=== PATIENT | male | born 1965 | race Caucasian/White ===

== ENCOUNTER 2017-08-19 12:54 | Inpatient (IN) | payer BC ==
[2017-08-19] MEDS: Dextrose 5%-Lactated Ringers 1,000 ML IV SCH ×2 (13:20→21:41)
[2017-08-19] MEDS ORDERED: MVI, Adult with Vitamin K 10 ML, Thiamine 200 MG, Chromium/Copper/Mang/Selen/Zn 1 ML in... IV ONE ×4 (13:24)
[2017-08-19] MEDS ORDERED: Ondansetron 4 MG/2 ML SDV IVPUSH PRN (13:24)
[2017-08-19] MEDS ORDERED: Acetaminophen/HYDROcodone 108-2.5 MG/5 ML Soln 15 ML UD Cup PO PRN (13:45)
--- NOTE | 2017-08-19 13:53 | PCM.HP ---
H&P History of Present Illness - General Date of Service: 08/19/17 Admit Problem/Dx: Admission Diagnosis/Problem Admission Diagnosis/Problem Partial small bowel obstruction Source of Information: Patient History Limitations: Reports: No Limitations - History of Present Illness Initial Comments - Free Text/Narative: [facility] because of a partial small bowel obstruction at the . He states he is feeling pretty good right now. Pain is a 1 - 2 /10 on a pain scale. Symptom Onset Date: 08/18/17 Symptom Onset Time: 15:00 (Approximate) Duration of Symptoms: Reports: Colic, Getting Worse, Waxing/Waning Location: Reports: Abdomen (left upper quadrant ) Quality: Reports: Pressure, Stabbing, Throbbing, Other (twisting ) Severity: Mild Improves with: Reports: None Worsens with: Reports: Eating, Movement Associated Symptoms: Reports: Loss of Appetite, Nausea/Vomiting - Related Data Allergies/Adverse Reactions: Allergies Allergy/AdvReac Type Severity Reaction Status Date / Time insulin lispro [From Humalog] Allergy Cannot Verified 03/09/14 06:18 Remember Penicillins Allergy Swelling Verified 03/09/14 06:18 varenicline tartrate Allergy Cannot Verified 03/09/14 06:18 [From Chantix] Remember Home Medications: Home Meds Carvedilol 25 mg PO BID 03/06/14 [History] Finasteride [Proscar] 5 mg PO DAILY 03/06/14 [History] Melatonin/Pyridoxine HCl (B6) [Melatonin 3 mg Tablet] 12 mg PO BEDTIME 03/06/14 [History] atorvaSTATin [Lipitor] 40 mg PO BEDTIME 03/06/14 [History] buPROPion HCl [Bupropion HCl Sr] 150 mg PO BID 03/06/14 [History] hydrOXYzine HCl [hydrOXYzine] 25 mg PO BID 03/06/14 [History] Lisinopril 20 mg PO DAILY 03/09/14 [History] Zolpidem Tartrate [Ambien] 10 mg PO BEDTIME 03/09/14 [History] Acetaminophen/HYDROcodone [Acetaminophen/HYDROcodone 108-2.5 MG/5 ML] 15 ml PO Q4H PRN #473 solution 03/12/14 [Rx] Hydrocortisone [Hydrocortisone 1% Crm] 28.4 gm TOP ASDIRECTED PRN #45 crm [Rx] Social & Family History - Tobacco Use Smoking Status *Q: Current Every Day Smoker Years of Tobacco use: 40 Packs/Tins Daily: 0.5 Second Hand Smoke Exposure: No - Caffeine Use Caffeine Use: Reports: Coffee - Recreational Drug Use Recreational Drug Use: No H&P Review of Systems - Review of Systems: Review Of Systems: See Below General: Reports: Fatigue, Decreased Appetite HEENT: Reports: No Symptoms Pulmonary: Reports: No Symptoms Cardiovascular: Reports: No Symptoms Gastrointestinal: Reports: Abdominal Pain, Decreased Appetite, Nausea Genitourinary: Reports: No Symptoms Musculoskeletal: Reports: No Symptoms Skin: Reports: No Symptoms Psychiatric: Reports: No Symptoms Neurological: Reports: No Symptoms Hematologic/Lymphatic: Reports: No Symptoms Immunologic: Reports: No Symptoms Exam - Exam Exam: See Below - Vital Signs Vital Signs: Last Vital Signs Temp 95.4 F 08/19/17 13:12 Pulse 60 08/19/17 13:12 Resp 16 08/19/17 13:12 BP 128/85 08/19/17 13:12 Pulse Ox 98 08/19/17 13:12 Weight: 409 lb 13.429 oz - Exam Quality Assessment: DVT Prophylaxis General: Alert, Oriented, Mild Distress HEENT: PERRLA Neck: Supple, Trachea Midline Lungs: Clear to Auscultation, Normal Respiratory Effort Cardiovascular: Regular Rate, Regular Rhythm, Systolic Murmur GI/Abdominal Exam: Soft, No Distention, Tender (minimal tenderness in the left upper quadrant. ), Hernia (umbilical ) (Male) Exam: Deferred Rectal (Males) Exam: Deferred Back Exam: Normal Inspection, Full Range of Motion Extremities: Normal Inspection, Normal Range of Motion, No Pedal Edema Skin: Warm, Dry, Intact Neurological: Cranial Nerves Intact, Reflexes Equal Bilateral Neuro Extensive - Mental Status: Alert, Oriented x3, Normal Mood/Affect, Memory Intact Neuro Extensive - Motor, Sensory, Reflexes: CN II-XII Intact Psychiatric: Alert, Normal Affect, Normal Mood Problem List Initiated/Reviewed/Updated: Yes Orders Last 24hrs: Active Orders 24 hr Category Date Time Status Patient Status [ADT] Routine ADT 08/19/17 13:25 Ordered Activity as Tolerated [RC] .Routine Care 08/19/17 13:24 Ordered Ambulate [RC] QID Care 08/19/17 13:24 Ordered Height and Weight [RC] UPON Care 08/19/17 13:24 Ordered Intake and Output [RC] QSHIFT Care 08/19/17 13:25 Ordered May Shower [RC] ASDIRECTED Care 08/19/17 13:24 Ordered Notify Provider Vital Signs [RC] ASDIRECTED Care 08/19/17 13:24 Ordered Peripheral IV Care [RC] . DIRECTED Care 08/19/17 13:24 Ordered Pulse Oximetry [RC] CONTINUOUS Care 08/19/17 13:25 Ordered Up to Chair [RC] QID Care 08/19/17 13:24 Ordered Vital Signs [RC] Q4H Care 08/19/17 13:24 Ordered Clear Liquid Diet [DIET] Diet 08/19/17 Dinner Ordered FERRITIN [CHEM] Routine Lab 08/19/17 13:24 Ordered FOLIC ACID [CHEM] Routine Lab 08/19/17 13:24 Ordered MAGNESIUM [CHEM] Routine Lab 08/19/17 13:24 Ordered PHOSPHORUS [CHEM] Routine Lab 08/19/17 13:24 Ordered VITAMIN B12 [CHEM] Routine Lab 08/19/17 13:24 Ordered VITAMIN D,25-HYDROXY [CHEM] Routine Lab 08/19/17 13:24 Ordered Acetaminophen/HYDROcodone [Acetaminophen/HYDROcodone Med 08/19/17 13:45 Ordered 108-2.5 MG/5 ML] 15 ml PO Q4H PRN Carvedilol [Coreg] Med 08/19/17 21:00 Ordered 25 mg PO BID Dextrose 5%-Lactated Ringers 1,000 ml Med 08/19/17 13:30 Active IV ASDIRECTED Finasteride [Proscar] Med 08/20/17 09:00 Ordered 5 mg PO DAILY Lactated Ringers w/MVI,Thiamine & Trace Minerals (1, Med 08/19/17 13:35 Ordered 000ml) MVI, Adult with Vitamin K [Infuvite Adult] 10 ml Thiamine [Vitamin B-1] 200 mg Chromium/Copper/Vivek/Selen/Zn [Multitrace-5 Concentrate ] 1 ml Lactated Ringers [Ringers, Lactated] 1,000 ml IV ONETIME Lisinopril [Prinivil] Med 08/20/17 09:00 Ordered 20 mg PO DAILY Melatonin/Pyridoxine HCl (B6) [Melatonin 3 mg Tablet] Med 08/19/17 21:00 Ordered 12 mg PO BEDTIME Ondansetron [Zofran] Med 08/19/17 13:24 Ordered 4 mg IVPUSH Q6H PRN Pantoprazole [ProTONIX IV] Med 08/19/17 21:00 Ordered 40 mg IVPUSH DAILY Zolpidem [Ambien] Med 08/19/17 21:00 Ordered 10 mg PO BEDTIME buPROPion [Wellbutrin SR] Med 08/19/17 21:00 Ordered 150 mg PO BID hydrOXYzine HCl [Atarax] Med 08/19/17 21:00 Ordered 25 mg PO BID Peripheral IV Insertion Adult [OM.PC] Routine Oth 08/19/17 13:24 Ordered Sequential Compression Device [OM.PC] Routine Oth 08/19/17 13:24 Ordered Medication Orders Dextrose/Lactated Ringer's (Dextrose 5%-Lactated Ringers) 1,000 mls @ 125 mls/ hr IV ASDIRECTED FLAQUITA Multivitamins/Minerals 10 ml/Thiamine HCl 200 mg/ Chromium/Copper/Manganese/ Seleni/Zn 1 ml/ Lactated Ringer's 1,013 mls @ 500 mls/hr IV ONETIME ONE Stop: 08/19/17 15:36 Ondansetron HCl (Zofran) 4 mg IVPUSH Q6H PRN PRN Reason: Nausea/Vomiting Pantoprazole Sodium (Protonix Iv) 40 mg IVPUSH BEDTIME [facility] Assessment/Plan Comment:: Assessment: Partial Small Bowel Obstruction Plan: Admit to Inpatient Estimated Length of stay 3 nights and 4 days Schedule and have Consent signed for Exploratory Laparoscopic possible Open release of partial small bowel obstruction and possible bowel resection and lysis of adhesions - General Anesthesia - 08/20/17. NPO after MN SCDs Incentive inspirometer 10 times every hour while awake. Roxana Villalobos 08/19/17
[2017-08-19] MEDS ORDERED: MVI, Adult with Vitamin K 10 ML, Thiamine 100 MG, Chromium/Copper/Mang/Selen/Zn 1 ML in... IV ONE ×4 (14:30)
[2017-08-19] MEDS: Magnesium Sulfate/Water 2 GM in Premix Bag 1 BAG IV SCH ×2 (17:03→21:23)
[2017-08-19] MEDS: Loratadine 10 MG Tab PO SCH (17:59)
[2017-08-19] MEDS: Tamsulosin 0.4 MG Cap.ER PO SCH (17:59)
[2017-08-19] MEDS: Fluticasone Propionate Nasal Spray 16 GM Bottle NASBOTH SCH (17:59)
[2017-08-19] MEDS ORDERED: Zolpidem 5 MG Tab PO SCH (21:00)
[2017-08-19] MEDS ORDERED: Carvedilol 25 MG Tab PO SCH (21:00)
[2017-08-19] MEDS ORDERED: buPROPion 150 MG Tab.SR PO SCH (21:00)
[2017-08-19] MEDS ORDERED: hydrOXYzine HCl 25 MG Tab PO SCH (21:00)
[2017-08-19] MEDS ORDERED: Melatonin 3 MG Tab PO SCH (21:00)
[2017-08-19] MEDS: Mirtazapine 15 MG Tab PO SCH (21:12)
[2017-08-19] MEDS: Pantoprazole 40 MG Vial IVPUSH SCH (21:12)
[2017-08-19] MEDS: Zolpidem 5 MG Tab PO SCH (21:18)
[2017-08-20] MEDS: Magnesium Sulfate/Water 2 GM in Premix Bag 1 BAG IV SCH ×4 (03:40→21:55)
[2017-08-20] MEDS: Dextrose 5%-Lactated Ringers 1,000 ML IV SCH (05:06)
[2017-08-20] MEDS ORDERED: Lisinopril 20 MG Tab PO SCH (09:00)
[2017-08-20] MEDS ORDERED: Finasteride 5 MG Tab PO SCH (09:00)
--- NOTE | 2017-08-20 09:54 | PN ---
DATE OF SERVICE: 08/20/2017 SUBJECTIVE: Cristofer is n.p.o. for an open procedure for partial small bowel obstruction. Vital signs have been stable. Pain was managed. He has been up ambulating. REVIEW OF SYSTEMS: Remainder of review of systems negative for any pertinent positives and negatives. OBJECTIVE: GENERAL: Cristofer [place] is a 52-year-old male. VITAL SIGNS: TPR is 96.3, 63, 16, and blood pressure is 130/84. HEENT: Negative. NECK: Supple. HEART: Regular rate and rhythm. LUNGS: Clear. ABDOMEN: Very minimal tenderness in the left abdominal quadrant. EXTREMITIES: Without peripheral edema. ASSESSMENT: High-grade partial small bowel obstruction. PLAN: 1. Remain n.p.o. for surgery. 2. Rx cefoxitin 2 grams IV on-call to OR. Roxana Mcnally PA-C /[id number]
[2017-08-20] MEDS ORDERED: Ondansetron 4 MG/2 ML SDV ONE (10:41)
[2017-08-20] MEDS ORDERED: Dexamethasone 4 MG/ML SDV ONE (10:41)
[2017-08-20] MEDS ORDERED: Neostigmine Methylsulfate 1 MG/ML 5 ML Syringe ONE (10:41)
[2017-08-20] MEDS ORDERED: Propofol 200 MG/20 ML SDV ONE (10:41)
[2017-08-20] MEDS ORDERED: Rocuronium 50 MG/5 ML Vial ONE (10:41)
[2017-08-20] MEDS ORDERED: fentaNYL 250 MCG/5 ML SDV ONE (10:41)
[2017-08-20] MEDS ORDERED: Succinylcholine 200 MG/10 ML MDV ONE (10:41)
[2017-08-20] MEDS ORDERED: Glycopyrrolate 0.2 MG/ML 5 ML MDV ONE (10:41)
[2017-08-20] MEDS ORDERED: cefOXitin 2 GM Vial ONE (10:51)
[2017-08-20] MEDS ORDERED: Bupivacaine 0.5%/EPINEPHrine 1:200,000 50 ML MDV ONE (10:51)
[2017-08-20] MEDS ORDERED: Ketamine 500 MG/5 ML MDV IV SCH ×3 (12:00)
[2017-08-20] MEDS ORDERED: cefOXitin 2 GM in Sodium Chloride 0.9% 50 ML IV ONE (12:00)
[2017-08-20] MEDS ORDERED: Lidocaine 2% 100 MG/5 ML Syringe IVPUSH ONE (12:00)
[2017-08-20] MEDS ORDERED: Lidocaine 2% 100 MG/5 ML Syringe IVPUSH SCH (12:00)
[2017-08-20] MEDS ORDERED: Lidocaine 0.4%/D5W 2 GM/500 ML BAG IV SCH ×2 (12:00)
[2017-08-20] MEDS ORDERED: Ropivacaine 42 ML, Dexamethasone 8 MG, EPINEPHrine 0.4 MG, Sodium Chloride 0.9% 35.6 ML NERVRT SCH ×4 (12:00)
[2017-08-20] MEDS ORDERED: Non-Formulary Medication 1 Each SCH (12:00)
[2017-08-20] MEDS ORDERED: Lactated Ringers 1,000 ML ONE (12:11)
[2017-08-20] MEDS ORDERED: Meropenem 500 MG SDV ONE (12:45)
[2017-08-20] MEDS ORDERED: fentaNYL 100 MCG/2 ML SDV ONE (13:18)
[2017-08-20] MEDS ORDERED: Scopolamine 1.5 MG Transdermal Patch TOP ONE (13:46)
[2017-08-20] MEDS ORDERED: hydrOXYzine HCl 100 MG/2 ML SDV IM ONE (13:47)
[2017-08-20] MEDS ORDERED: fentaNYL 100 MCG/2 ML SDV IVPUSH ONE (13:59)
[2017-08-20] MEDS ORDERED: hydrOXYzine HCl 100 MG/2 ML SDV IM PRN (16:00)
[2017-08-20] MEDS ORDERED: diphenhydrAMINE 50 MG/ML SDV IVPUSH PRN (16:00)
[2017-08-20] MEDS ORDERED: Ondansetron 4 MG/2 ML SDV IVPUSH PRN (16:00)
[2017-08-20] MEDS ORDERED: Dextrose 5%-Lactated Ringers 1,000 ML IV SCH (16:00)
[2017-08-20] MEDS ORDERED: Labetalol 20 MG/4 ML Syringe IVPUSH PRN (16:00)
[2017-08-20] MEDS ORDERED: MVI, Adult with Vitamin K 10 ML, Thiamine 200 MG, Chromium/Copper/Mang/Selen/Zn 1 ML in... IV SCH ×4 (16:00)
[2017-08-20] MEDS ORDERED: SCOPOLAMINE PATCH CHECK TOP SCH (16:00)
[2017-08-20] MEDS ORDERED: Naloxone 0.4 MG/ML SDV IV PRN (16:00)
[2017-08-20] MEDS ORDERED: Metoclopramide 10 MG/2 ML SDV IVPUSH PRN (16:00)
[2017-08-20] MEDS ORDERED: HYDROmorphone/Normal Saline 15 MG/30 ML PCA IV PRN (16:00)
[2017-08-20] MEDS: Tamsulosin 0.4 MG Cap.ER PO SCH (16:10)
[2017-08-20] MEDS: Acetaminophen Soln 650 MG/20.3 ML UD Cup PO SCH ×2 (16:10→21:04)
[2017-08-20] MEDS: Loratadine 10 MG Tab PO SCH (16:11)
[2017-08-20] MEDS: Gabapentin 250 MG/5 ML Solution ML 470 ML Bottle PO SCH ×2 (16:11→20:42)
[2017-08-20] MEDS: Fluticasone Propionate Nasal Spray 16 GM Bottle NASBOTH SCH (16:11)
[2017-08-20] MEDS: Heparin Sodium 5,000 Units/ML Vial SUBCUT SCH (18:41)
[2017-08-20] MEDS: cefOXitin 2 GM in Sodium Chloride 0.9% 50 ML IV SCH (20:43)
[2017-08-20] MEDS: Pantoprazole 40 MG Vial IVPUSH SCH (20:47)
[2017-08-20] MEDS: Mirtazapine 15 MG Tab PO SCH (21:04)
[2017-08-20] MEDS: Zolpidem 5 MG Tab PO SCH (21:04)
[2017-08-21] MEDS: cefOXitin 2 GM in Sodium Chloride 0.9% 50 ML IV SCH ×2 (03:44→08:22)
[2017-08-21] MEDS: Acetaminophen Soln 650 MG/20.3 ML UD Cup PO SCH ×3 (03:45→15:52)
[2017-08-21] MEDS ORDERED: Iohexol 647 MG/ML 50 ML SDV PO STA (03:49)
[2017-08-21] MEDS: Magnesium Sulfate/Water 2 GM in Premix Bag 1 BAG IV SCH ×2 (04:44→09:51)
[2017-08-21] MEDS ORDERED: Celecoxib 200 MG Cap PO SCH (08:00)
[2017-08-21] MEDS: Heparin Sodium 5,000 Units/ML Vial SUBCUT SCH (08:12)
[2017-08-21] MEDS: Gabapentin 250 MG/5 ML Solution ML 470 ML Bottle PO SCH ×2 (08:12→13:46)
[2017-08-21] MEDS ORDERED: buPROPion 150 MG Tab.SR PO ONE (08:23)
[2017-08-21] MEDS: Carvedilol 6.25 MG Tab PO SCH ×2 (09:51→16:02)
[2017-08-21] MEDS ORDERED: Magnesium Hydroxide 400 MG/5 ML Susp 30 ML Cup PO ONE ×2 (10:00→15:41)
[2017-08-21] MEDS ORDERED: Lisinopril 20 MG Tab PO SCH (10:00)
[2017-08-21 15:04] VITALS: BP 162/89
[2017-08-21] MEDS: Tamsulosin 0.4 MG Cap.ER PO SCH (16:02)
[2017-08-21] MEDS: Fluticasone Propionate Nasal Spray 16 GM Bottle NASBOTH SCH (16:02)
[2017-08-21] MEDS: Loratadine 10 MG Tab PO SCH (16:02)
[2017-08-22] MEDS ORDERED: Cyanocobalamin (Vitamin B12) 1,000 MCG/ML SDV IM ONE (09:00)
--- NOTE | 2017-08-23 08:47 | CR ---
UGI wo KUB HISTORY: eval R -Y GBP FINDINGS: After administration of oral contrast, upright views were obtained. Post operative changes gastric bypass. Surgical drains in place. No evidence for leak. Contrast passes freely into proximal small bowel loops. There is contrast in the colon from prior CT abdomen. There is some persistent sma ll bowel distention from ileus IMPRESSION: Status post Sharla-en-Y gastric bypass revision No evidence for leak or obstruction.
--- NOTE | 2017-08-23 09:15 | DISCH ---
FINAL DIAGNOSES: Partial small bowel obstruction associated with: 1. Stricture at the point of the Sharla limb entering jejunojejunostomy. 2. 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 3. Peritoneal implant over mid small bowel. 4. Recurrent incarcerated umbilical hernia. SECONDARY DIAGNOSES: 1. Bariatric surgery status. 2. History of coronary artery disease. 3. History of depression. 4. Type 2 diabetes mellitus, in remission. 5. Hyperlipidemia, in remission. 6. Hypertension. 7. History of methamphetamine use, in remission. 8. History of obstructive sleep apnea. OPERATIVE PROCEDURE: This was done on 08/20/2017. Exploratory laparotomy with lysis of adhesions and: 1. Small bowel resection. 2. Separate small bowel strictureplasty. 3. Excision of peritoneal nodule, mid small bowel. 4. Repair of recurrent incarcerated umbilical hernia. HOSPITAL COURSE: This 52-year-old, who has done well status post Sharla-en-Y gastric bypass, was presenting with a picture of small-bowel obstruction. He was initially seen in [facility] in [place] and was transferred here then on 08/19/2017 and underwent the above operative procedure on 08/20/2017. Postoperatively, he has done well. He has been receiving Tylenol, Celebrex, and gabapentin for pain, which is controlling that satisfactorily. He will be discharged home with those medications with two weeks of gabapentin and Celebrex to be written, and he will be discharged home on a step 3 diet for 1 week and then follow up with Roxana Mcnally will be on 08/27/2017 at 10:30 a.m. He will otherwise continue his present home medications.
--- NOTE | 2017-08-24 11:47 | OR ---
DATE OF PROCEDURE: 08/20/2017 PREOPERATIVE DIAGNOSIS: Partial small bowel obstruction. POSTOPERATIVE DIAGNOSES: 1. Partial small bowel obstruction at jejunojejunostomy. 2. Separate small bowel stricture in the mid common limb. 3. Peritoneal implants over mid small bowel. 4. Recurrent incarcerated umbilical hernia. OPERATIVE PROCEDURES: Exploratory laparotomy with lysis of adhesions. 1. Small bowel resection (68759). 2. Separate small bowel stricturoplasty (49369). 3. Excision of peritoneal nodule overlying the mid small bowel (16067). 4. Repair of recurrent incarcerated umbilical hernia (85975). ANESTHESIA: General. BOOK SHELVER: Roxana Mcnally PA-C INDICATIONS FOR PROCEDURE: This is a 52-year-old male admitted in the [facility] early yesterday morning and then was transferred yesterday during the daytime. He has a picture of partial small bowel obstruction. Overnight, he has felt fairly good and without having any significant oral intake, and the plan is to proceed with open laparotomy and release of any adhesions with small bowel resection if necessary. Potential risks of procedure including bleeding, infection, leaks from various GI tract closures, and possible recurrence of the problem over time as well as possibility of cardiopulmonary, septic, or hemorrhagic complications leading to were discussed, and the patient wishes to proceed. An open approach will be used due to the degree of small bowel distention seen on CT scan which would make entrance into the abdomen with a laparoscopic approach would put the patient at high risk for bowel injury and significant spill of GI contents. DETAILS OF PROCEDURE: The patient was taken to the operating room. After general endotracheal anesthesia was induced, a Bro catheter was inserted, and the abdomen prepped and draped. A midline incision from the umbilicus upwards, roughly a handsbreadth in length towards the xiphoid was made and carried down through the full-thickness of abdominal wall. Upon entering the peritoneal cavity, the patient was noted to have a fairly distended Sharla limb. This had decompressed somewhat compared to what was seen on CT scan with the condition of the patient having been more or less n.p.o. The patient appeared to have some stricturing at the jejunojejunostomy and that appeared to be related to the angulation of the Sharla limb as it entered the jejunojejunostomy. After lysis of adhesions, the patient was noted to have an additional layer of stricturing somewhat proximal to the original jejunojejunostomy. It was likely contributing to the patient's symptoms as well. It was noted that the biliopancreatic limb above that was also somewhat distended and thick walled. Further examination showed a small peritoneal nodule over the mid portion of the small bowel high over the common limb. This was excised and sent as a separate specimen. It appeared to most likely be some benign entity, although pathologic confirmation would appear to be necessary. The patient also had an area of incarcerated umbilical hernia sac containing small amount of omentum and preperitoneal fat as this had previously been repaired. At this point, the small bowel was detached at the point where the Sharla limb entered the jejunojejunostomy with the BILL stapler. Just proximal to that, the bowel was once again divided to provide the end of that Sharla limb with an area for anastomosis with adequate blood supply. That small bowel specimen was sent separately. The stricture in the area where the biliopancreatic limb came up to the jejunojejunostomy was then also addressed. At this point, an opening was made in the antimesenteric border. Two internal firings of the BILL adams loads were placed at the end of that bowel which extended into the jejunojejunostomy was then divided, closing off the open end of the site of the stricturoplasty. GI tract continuity was finalized with an anastomosis between the end of the Sharla limb, which at this point was noted to be 110 cm to the small bowel, roughly 20 cm distal to the edge of the jejunojejunostomy. We did not change the limb length significantly in this case as the patient's weight loss and comorbidity reduction has been very satisfactory. This anastomosis accomplished with internal firing of the Endo-BILL 60 mm stapler. The common limb was closed transversely using the same stapler. Angles were anastomosed and were reinforced with some 3-0 Vicryl stitch, and the mesentery closed with a 2-0 silk stitch of nonabsorbable stitch being used so as to make this more of a permanent closure. At this point, the umbilical hernia was addressed. Incision extended downward such that we entered the sac of the hernia from its superior aspect. This allowed dissection of the contents away from the hernia. The hernia was then closed with a [id number] stitch of #2 Vicryl stitching that was from within. This did result in a little bit of bunching of the tissue which might make it seem as though there was persistent hernia, but it certainly was not at this point. The stitch was then continued to close the midline fascia superior to that, and the subcutaneous tissue was then approximated with layers of 3-0 Vicryl stitch and the skin with arabella. Dressing was applied. The patient was taken to the recovery room in satisfactory condition. Of note, the patient had a transversus abdominis plane block focused in the subcostal area done by open approach but precluded visualization of needle in correct of location and standard injection of solution on each site. Physician appeals assistant, Roxana Mcnally PA-C, played an essential role in assisting in this case, helping to position the patient, retract structures as needed, as well as suturing and cutting sutures when indicated. Her presence improved patient safety and decreased the operative time. Tao Rehman MD /[id number]
== END 2017-08-21 19:25 | disposition home or self-care (01) | DRG 221 ==
LOC: JP.2SS 12:54
PROVIDERS: ADMIT Surgery; ATTEND Surgery
PROC: 0DBA0ZX Excision of Jejunum, Open Approach, Diagnostic (ICD-10-PCS; 2017-08-19)
PROC: 3E0T3BZ Introduction of Anesthetic Agent into Peripheral Nerves and Plexi, Percutaneous Approach (ICD-10-PCS; 2017-08-19)
PROC: 0DB80ZZ Excision of Small Intestine, Open Approach (ICD-10-PCS; principal; 2017-08-20)
PROC: 0WQF0ZZ Repair Abdominal Wall, Open Approach (ICD-10-PCS; 2017-08-20)
PROC: 0DQ80ZZ Repair Small Intestine, Open Approach (ICD-10-PCS; 2017-08-20)
PROC: 0DBW0ZZ Excision of Peritoneum, Open Approach (ICD-10-PCS; 2017-08-20)
DX: K56.690 Other partial intestinal obstruction (principal); K42.0 Umbilical hernia with obstruction, without gangrene; I25.10 Atherosclerotic heart disease of native coronary artery without angina pectoris; I10 Essential (primary) hypertension; G47.33 Obstructive sleep apnea (adult) (pediatric); F32.9 Major depressive disorder, single episode, unspecified; F41.9 Anxiety disorder, unspecified; K31.89 Other diseases of stomach and duodenum; F15.21 Other stimulant dependence, in remission; F17.210 Nicotine dependence, cigarettes, uncomplicated; Z98.84 Bariatric surgery status; Z88.8 Allergy status to other drugs, medicaments and biological substances; Z79.899 Other long term (current) drug therapy; Z95.5 Presence of coronary angioplasty implant and graft; K56.51 Intestinal adhesions [bands], with partial obstruction; K63.89 Other specified diseases of intestine
CPT/HCPCS: 36415; 74240; 74240-26; 82306; 82607; 82728; 82746; 83735; 84100; 88302; 88305; 88307; 94762; A9270-GY; C9113; J0171; J0330; J0694; J1100; J1644; J2001; J2185; J2405; J2704; J2710; J2795; J3010; J3410; J3411; J3475; J7030; J7042; J7050; J7120; Q9967

== ENCOUNTER 2018-09-26 08:46 | Inpatient (IN) | payer BC ==
[~2018-09-26 08:46] MED LIST: Dexamethasone 4 MG/ML SDV ONE; Glycopyrrolate 0.2 MG/ML 5 ML MDV ONE; Meropenem 500 MG SDV ONE; Neostigmine Methylsulfate 1 MG/ML 5 ML Syringe ONE; Ondansetron 4 MG/2 ML SDV ONE; Propofol 200 MG/20 ML SDV ONE; Rocuronium 50 MG/5 ML Vial ONE; Succinylcholine 200 MG/10 ML MDV ONE; fentaNYL 250 MCG/5 ML SDV ONE
[2018-09-26] MEDS ORDERED: Scopolamine 1.5 MG Transdermal Patch TOP ONE (09:00)
[2018-09-26] MEDS ORDERED: Acetaminophen 500 MG Tab PO ONE (09:00)
[2018-09-26] MEDS: Dextrose 5%-Lactated Ringers 1,000 ML IV SCH ×4 (09:04→23:10)
[2018-09-26] MEDS ORDERED: Ketamine 50 MG in Sodium Chloride 0.9% 49.5 ML IV SCH (09:30)
[2018-09-26] MEDS ORDERED: Ketamine 500 MG/5 ML MDV IV SCH (09:30)
[2018-09-26] MEDS ORDERED: SODIUM CHLORIDE 0.9% NERVRT SCH ×4 (09:45)
[2018-09-26] MEDS ORDERED: EPINEPHRINE NERVRT SCH ×4 (09:45)
[2018-09-26] MEDS ORDERED: DEXAMETHASONE NERVRT SCH ×4 (09:45)
[2018-09-26] MEDS ORDERED: ROPIVACAINE NERVRT SCH ×4 (09:45)
[2018-09-26] MEDS: cefOXitin 2 GM in Sodium Chloride 0.9% 50 ML IV ONE ×2 (10:42→13:54)
[2018-09-26] MEDS ORDERED: Lidocaine 1% with EPINEPHrine 1:100,000 50 ML MDV ONE (11:16)
[2018-09-26] MEDS ORDERED: Bupivacaine 0.5% 50 ML MDV ONE (11:16)
[2018-09-26] MEDS ORDERED: Rocuronium 50 MG/5 ML Vial ONE (11:18)
[2018-09-26] MEDS ORDERED: fentaNYL 250 MCG/5 ML SDV ONE (11:42)
[2018-09-26] MEDS ORDERED: Lactated Ringers 1,000 ML ONE (12:04)
[2018-09-26] MEDS ORDERED: Labetalol 20 MG/4 ML Syringe IVPUSH PRN (14:07)
[2018-09-26] MEDS ORDERED: Ondansetron 4 MG/2 ML SDV IVPUSH PRN (14:07)
[2018-09-26] MEDS ORDERED: diphenhydrAMINE 50 MG/ML SDV IVPUSH PRN (14:07)
[2018-09-26] MEDS ORDERED: Metoclopramide 10 MG/2 ML SDV IVPUSH PRN (14:07)
[2018-09-26] MEDS ORDERED: hydrOXYzine HCl 100 MG/2 ML SDV IM PRN (14:07)
[2018-09-26] MEDS ORDERED: HYDROmorphone 1 MG/ML Syringe IV PRN (14:07)
[2018-09-26] MEDS: HYDROmorphone 0.5 MG/0.5 ML Syringe IVPUSH PRN ×2 (15:58→21:07)
[2018-09-26] MEDS: Gabapentin 300 MG Cap PO SCH ×2 (15:58→21:19)
[2018-09-26] MEDS ORDERED: Pantoprazole 40 MG Vial IVPUSH SCH (16:00)
[2018-09-26] MEDS ORDERED: MVI, Adult with Vitamin K 10 ML, Thiamine 200 MG, Chromium/Copper/Mang/Selen/Zn 1 ML in... IV SCH ×4 (16:00)
[2018-09-26] MEDS: CHLORPHENIRAMINE 4 MG PO SCH ×2 (16:04→21:21)
[2018-09-26] MEDS: Acetaminophen 325 MG Tab PO SCH ×2 (16:05→21:18)
[2018-09-26] MEDS: cefOXitin 2 GM in Sodium Chloride 0.9% 50 ML IV SCH ×2 (16:17→21:24)
[2018-09-26] MEDS ORDERED: NICOTROL INH PRN (17:28)
[2018-09-26] MEDS: Heparin Sodium 5,000 Units/ML Vial SUBCUT SCH (19:46)
[2018-09-26] MEDS: Mirtazapine 15 MG Tab PO SCH (21:18)
[2018-09-26] MEDS: Finasteride 5 MG Tab PO SCH (21:19)
[2018-09-26] MEDS: Celecoxib 200 MG Cap PO SCH (21:19)
[2018-09-26] MEDS: Tamsulosin 0.4 MG Cap.ER PO SCH (21:19)
[2018-09-26] MEDS: Carvedilol 6.25 MG Tab PO SCH (21:19)
[2018-09-26] MEDS: atorvaSTATin 20 MG Tab PO SCH (21:19)
[2018-09-26] MEDS: Fluticasone Propionate Nasal Spray 16 GM Bottle NASBOTH SCH (21:21)
[2018-09-26] MEDS: Zolpidem 5 MG Tab PO PRN (22:40)
[2018-09-27] MEDS: HYDROmorphone 0.5 MG/0.5 ML Syringe IVPUSH PRN ×2 (02:10→04:38)
[2018-09-27] MEDS ORDERED: Iopamidol 612 MG/ML 50 ML SDV PO STA (03:52)
[2018-09-27] MEDS: Acetaminophen 325 MG Tab PO SCH ×4 (04:24→21:22)
[2018-09-27] MEDS: cefOXitin 2 GM in Sodium Chloride 0.9% 50 ML IV SCH ×4 (04:25→21:26)
[2018-09-27] MEDS: Dextrose 5%-Lactated Ringers 1,000 ML IV SCH ×2 (04:41→11:39)
--- NOTE | 2018-09-27 04:53 | CRLCR ---
Indication: Small-bowel resection and hernia repair Technique: Abdomen 3 view Comparison: Abdominal film 08/21/2017 Findings/Impression: Three submitted images. The 1st image shows a gastrojejunostomy with administered oral contrast in the distal esophagus, gastric remnant and extending to the proximal small bowel. Subsequent images show interval transit throughout the small bowel without definite evidence of leak. Midline skin arabella. Dictated by Roldan Vinson MD @ Sep 27 2018 4:48AM Signed by Dr. Roldan Vinson @ Sep 27 2018 4:50AM
[2018-09-27] MEDS: CHLORPHENIRAMINE 4 MG PO SCH ×4 (06:56→21:26)
[2018-09-27] MEDS: Heparin Sodium 5,000 Units/ML Vial SUBCUT SCH ×2 (08:14→20:19)
[2018-09-27] MEDS: Lisinopril 20 MG Tab PO SCH (08:17)
[2018-09-27] MEDS: Gabapentin 300 MG Cap PO SCH ×3 (08:17→21:23)
[2018-09-27] MEDS: buPROPion 150 MG Tab.SR PO SCH (08:17)
[2018-09-27] MEDS: Aspirin 81 MG Tab.EC PO SCH (08:17)
[2018-09-27] MEDS: Carvedilol 6.25 MG Tab PO SCH ×2 (08:18→21:28)
[2018-09-27] MEDS: Celecoxib 200 MG Cap PO SCH ×2 (08:18→21:23)
[2018-09-27] MEDS: SCOPOLAMINE PATCH CHECK TOP SCH (08:19)
[2018-09-27] MEDS: HYDROmorphone 2 MG Tab PO PRN ×4 (09:07→21:21)
[2018-09-27] MEDS: Docusate Sodium 100 MG Cap PO SCH ×2 (09:27→21:23)
[2018-09-27] MEDS ORDERED: MVI, Adult with Vitamin K 10 ML, Thiamine 200 MG, Chromium/Copper/Mang/Selen/Zn 1 ML in... IV SCH ×4 (16:00)
[2018-09-27] MEDS ORDERED: Pantoprazole 40 MG Delayed-Release Granules 1 Packet PO SCH (16:00)
[2018-09-27] MEDS ORDERED: Pantoprazole 40 MG Tab.CR PO SCH (16:00)
[2018-09-27] MEDS: Fluticasone Propionate Nasal Spray 16 GM Bottle NASBOTH SCH (21:19)
[2018-09-27] MEDS: Tamsulosin 0.4 MG Cap.ER PO SCH (21:21)
[2018-09-27] MEDS: Zolpidem 5 MG Tab PO PRN (21:21)
[2018-09-27] MEDS: Finasteride 5 MG Tab PO SCH (21:23)
[2018-09-27] MEDS: Mirtazapine 15 MG Tab PO SCH (21:24)
[2018-09-27] MEDS: atorvaSTATin 20 MG Tab PO SCH (21:25)
[2018-09-28] MEDS: HYDROmorphone 2 MG Tab PO PRN ×3 (02:14→10:39)
[2018-09-28] MEDS: Acetaminophen 325 MG Tab PO SCH (03:04)
[2018-09-28] MEDS: Dextrose 5%-Lactated Ringers 1,000 ML IV SCH (03:04)
[2018-09-28] MEDS: CHLORPHENIRAMINE 4 MG PO SCH (06:27)
[2018-09-28 07:09] VITALS: BP 137/75; PULSE 65
[2018-09-28] MEDS ORDERED: Cyanocobalamin (Vitamin B12) 1,000 MCG/ML SDV IM ONE (09:00)
[2018-09-28] MEDS: Aspirin 81 MG Tab.EC PO SCH (09:04)
[2018-09-28] MEDS: Celecoxib 200 MG Cap PO SCH (09:04)
[2018-09-28] MEDS: Lisinopril 20 MG Tab PO SCH (09:05)
[2018-09-28] MEDS: buPROPion 150 MG Tab.SR PO SCH (09:05)
[2018-09-28] MEDS: Heparin Sodium 5,000 Units/ML Vial SUBCUT SCH (09:06)
[2018-09-28] MEDS: Docusate Sodium 100 MG Cap PO SCH (09:06)
[2018-09-28] MEDS: Carvedilol 6.25 MG Tab PO SCH (09:06)
[2018-09-28] MEDS: Gabapentin 300 MG Cap PO SCH (09:07)
[2018-09-28] MEDS: SCOPOLAMINE PATCH CHECK TOP SCH (09:13)
--- NOTE | 2018-09-28 14:03 | DISCH ---
ADMISSION DIAGNOSES: 1. Postprandial abdominal pain. 2. Left inguinal groin pain. 3. Status post Sharla-en-Y gastric bypass surgery. 4. Unspecified surgical malabsorption. 5. B12 deficiency. 6. Essential hypertension. 7. Dyslipidemia. 8. Obstructive sleep apnea. 9. Tobacco use disorder. 10.Coronary artery disease involving [place] coronary artery. 11.Vitamin D deficiency. 12.Allergic rhinitis. 13.Social anxiety disorder. 14.Methamphetamine abuse, in remission. DISCHARGE DIAGNOSES: 1. Left inguinal exploration;. a. Repair of left inguinal hernia with mesh plug technique. b. Excision of left inguinal nerve. 2. Exploratory laparotomy with;. a. Small bowel resection. b. Small bowel stricture plasty. c. Repair of incarcerated incisional hernia. d. Placement of Interceed mesh for indirect left inguinal hernia with left inguinal nerve entrapment. 3. Partial small bowel obstruction of the jejunojejunostomy and separate small bowel stricture. 4. Incarcerated incisional hernia. 5. Excision of intraabdominal adhesions. Date of surgery: 09/26/2018. Surgeon: Tao Rehman MD. HISTORY: Cristofer Thompson is a 53-year-old male with postprandial abdominal pain and left inguinal pain. After preoperative evaluation and discussion of possible risks and possible complications, he wished to proceed with surgical procedure. HOSPITAL COURSE: Cristofer had his surgery on 09/26/2018. He had no operative complications. On postoperative day #1, his Bro catheter was discontinued. His IV was decreased to 100 mL per hour. He was started on a step 3 gastric bypass diet, changed to oral Dilaudid 2 mg for pain, and started on Colace 100 mg b.i.d. On postoperative day #2, his pain was controlled. His activity was good. He had a large bowel movement. Oral intake adequate. Vital signs stable. He was able to be discharged to home. PHYSICAL EXAMINATION: GENERAL: Cristofer Thompson is a 53-year-old male. VITAL SIGNS: Height is 6 feet, weight is 184 pounds, BMI is 24. TPR is 96.2, 65, 18, blood pressure 137/75. HEENT: Negative. NECK: Supple. HEART: Regular rate and rhythm. LUNGS: Clear. ABDOMEN: Dressings dry and intact. Abdominal binder is on. On abdominal incision, left inguinal incision looks good. Anitra intact. EXTREMITIES: Without peripheral edema. DISPOSITION: Discharged to home. CONDITION: Stable and improving. FOLLOWUP: Followup appointment with Roxana Mcnally PA-C, on 10/06/[address] [facility] at 10 a.m. HOME MEDICATIONS: 1. Tylenol 650 mg oral q.6 hours. 2. Celebrex 200 mg oral twice daily #14. 3. Dilaudid 2 mg every 6 hours p.r.n. pain, #28. He is to resume home medication of; 1. Tylenol 650 q.6 hours. 2. Adult low-dose aspirin 81 mg every morning. 3. Carvedilol 6.25 mg oral daily. 4. Chlorphenamine 4 mg before meals and at bedtime. 5. Vitamin D3 5000 International Units every morning. 6. Vitamin B12 1000 mcg sublingual daily. 7. Proscar 5 mg oral every evening. 8. Neurontin 300 mg oral 3 times a day. 9. Lisinopril 20 mg oral daily. 10.Magnesium oxide 400 mg oral daily. 11.Remeron 45 mg oral at bedtime. 12.Multivitamin one tablet every morning. 13.Fish oil 1000 mg oral every morning. 14.Flomax 0.4 mg every evening. 15.Nasacort 10.8 mL nasal every evening. 16.Vitamin B complex 150 mg oral every morning. 17.Ambien 10 mg oral at bedtime. 18.Lipitor 40 mg oral at bedtime. 19.Bupropion 150 mg oral every morning. 20.Hydroxyzine 25 to 50 mg oral twice daily for anxiety. DIET: Step 3 gastric bypass diet for 3 weeks. Drink 8 to 10 glasses of water a day, 65 g of protein. No lifting over 10 pounds for 6 weeks. Walk 6 times daily inside your home. Driving: Do not drive for 1 week and while on pain medication. Shower/bathing: May shower. DISCHARGE INSTRUCTIONS: Notify provider if any fever, increased pain, swelling, nausea, or vomiting. Wound incision care, keep site clean and dry. Wear abdominal binder for 6 weeks and then as tolerated. SPECIAL INSTRUCTIONS: Use incentive spirometer 10 times every hour while awake.
--- NOTE | 2018-09-30 17:59 | PN ---
DATE OF SERVICE: 09/27/2018 The patient is postoperative day #1 from a left inguinal hernia repair along with a laparotomy with small bowel resection and revision of his jejunojejunostomy along with repair of recurrent incisional hernia. Clinically, he is doing well at this point. We will discontinue the Bro catheter, go over to step-3 diet. The upper GI x-ray looked good this morning. We will go over to oral pain medication, and he may be ready for discharge home tomorrow. Tao Rehman MD /[id number]
--- NOTE | 2018-10-03 12:33 | OR ---
DATE OF PROCEDURE: 09/26/2018 PREOPERATIVE DIAGNOSES: 1. Partial small bowel obstruction. 2. Painful nodular area, left inguinal floor. 3. Incarcerated incisional hernia. POSTOPERATIVE DIAGNOSES: 1. Indirect left inguinal hernia with left ilioinguinal nerve at risk for scar entrapment. 2. Partial small bowel obstruction with an obstructive area at the point of Sharla limb entering jejunojejunostomy and separate small bowel stricture distal to jejunojejunostomy. 3. Incarcerated incisional hernia. 4. Extensive intraabdominal adhesions. OPERATIVE PROCEDURES: 1. Left inguinal exploration with: a. Repair of left inguinal hernia with mesh plug technique (86014). b. Excision of portion of left ilioinguinal nerve (88319). 2. Exploratory laparotomy with: a. Small bowel resection (57410). b. Small bowel stricturoplasty (61551). c. Repair of incarcerated incisional hernia (63383). d. Placement of Interceed mesh to limit recurrent adhesion formation between pelvic and abdominal wall and underlying viscera (92799). ANESTHESIA: General. ASSISTANTS: Roxana Mcnally PA-C, and GALILEO Goodwin1. INDICATION FOR PROCEDURE: This is a 53-year-old, status post previous Sharla-en-Y gastric bypass, presenting with a picture of partial small bowel obstruction and also has a nodular fullness in the left inguinal floor of uncertain nature. Plan is to proceed with inguinal exploration with the procedures as indicated including possible mesh repair of hernia and division of nerves that might become entrapped. Following this an exploratory laparotomy with release of small bowel obstruction and small bowel resection as indicated. Potential risks of the procedure including bleeding, infection, injury to underlying viscera, and possible chronic pain following the inguinal exploration, possible leaks from GI tract closures or recurrent bowel obstruction over time were all reviewed, and the patient wishes to proceed. DETAILS OF PROCEDURE: The patient was taken to the operating room, and after general endotracheal anesthesia was induced, the abdomen and groin areas were prepped and draped. The left inguinal area was addressed initially with a standard left inguinal incision, which was carried down through the skin and subcutaneous tissue and through the external oblique aponeurosis. Subaponeurotic flaps were then raised superiorly and inferiorly. On dissection, the patient was noted to have a small indirect hernia that had some thickened fatty tissue as well, perhaps an element of rosa bladder fat. This was dissected free from the core structures and a medial mesh plug was then placed into the defect and it was fixed to the underlying conjoined tendon with some horizontal mattress sutures of 0 Vicryl stitch, and then the inguinal floor tightened up with a [id number] stitch of 0 Vicryl stitch as well. The ilioinguinal nerve was passing directly over where the flat portion of the mesh plug system would be placed. So, to avoid chronic pain, this nerve was then excised out to the lateral-most aspect of the incision. Flat portion of the mesh plug system was then placed across the floor and sutured laterally into the ring with 3-0 Vicryl stitch. The external oblique aponeurosis and Daisy's fascia were then closed with 3-0 Vicryl stitch as well and the skin with arabella. A regional block using 0.5% Marcaine mixed with lidocaine was placed as well at this point. An upper midline incision was then made from the umbilicus roughly a hands breadth superior toward the xiphoid. This was carried down through the skin and subcutaneous tissue. The incisional hernia was encountered and some incarcerated components of this including omentum and some of the wall of the transverse colon were dissected free from the hernia sac and the hernia sac then excised. The underlying small bowel was then inspected. The patient was noted to have some angulation and narrowing at the point where the Sharla limb entered the jejunojejunostomy and then had a separate area of significant narrowing of roughly 20 cm distal to the jejunojejunostomy. At this point, there was small bowel coming into the jejunojejunostomy, i.e., the distal most Sharla limb, was divided down and a small segment of this was resected using BILL arabella and the specimen was delivered from the field. The small bowel stricturoplasty was then accomplished by flipping the area of the stricture back over on itself creating an antimesenteric opening and then firing a 60 mm BILL stapler into the sides of the bowel as it laid against each other, and the common opening then closed with a BILL stapler as well. The angles of anastomosis in this case were reinforced with some 3-0 Vicryl stitch and there was no mesenteric defect in this case. The Sharla-en-Y anatomy was then reconstructed with a reattachment of the Sharla limb to a point roughly 20 cm distal to the stricturoplasty. This left the patient at this point still with several hundred centimeters length of common limb and roughly 80 cm of Sharla limb. The side- to-side enteroenterostomy was accomplished with internal firing of the Endo-BILL 60 mm stapler. The common opening was closed transversely with the same stapler and the anastomosis was reinforced with some 3-0 Vicryl stitch. The mesenteric defect was then closed with a running 2-0 silk stitch. At this point, the omentum was assessed and it was not readily mobile to bring down toward the lower abdomen and pelvis. Therefore, Interceed mesh was then placed down toward the pelvis and up against the abdominal wall to limit recurrent adhesion formation between those surfaces and the underlying viscera. The midline fascia was then approximated with a #2 Vicryl stitch. The subcutaneous tissue was approximated with 2 layers of 3-0 and 4-0 Vicryl stitch and the skin with arabella. Prior to closure, bilateral transversus abdominis plane blocks were placed and the incision anesthesized itself with some additional 1% lidocaine mixed with Marcaine. The patient was then taken to the recovery room in satisfactory condition. Physician orthopaedic physician assistant, Roxana Mcnally, played an essential role in assisting in this case helping to position the patient, retract structures as needed, as well as suturing and stapling when indicated. Her presence improved patient safety and decreased the operative time. Tao Rehman MD /[id number]
== END 2018-09-28 11:17 | disposition home or self-care (01) | DRG 221 ==
LOC: JP.SDSSCHI 08:46 → JP.SDS 08:47 → EDSTATUS 10:15 → JP.MS 13:49
PROVIDERS: ADMIT Surgery; ATTEND Surgery
PROC: 0D1A0ZA Bypass Jejunum to Jejunum, Open Approach (ICD-10-PCS; principal; 2018-09-26)
PROC: 0YU60JZ Supplement Left Inguinal Region with Synthetic Substitute, Open Approach (ICD-10-PCS; 2018-09-26)
PROC: 3E0M05Z Introduction of Adhesion Barrier into Peritoneal Cavity, Open Approach (ICD-10-PCS; 2018-09-26)
PROC: 0WQF0ZZ Repair Abdominal Wall, Open Approach (ICD-10-PCS; 2018-09-26)
PROC: 0DBA0ZZ Excision of Jejunum, Open Approach (ICD-10-PCS; 2018-09-26)
PROC: 01B90ZZ Excision of Lumbar Plexus, Open Approach (ICD-10-PCS; 2018-09-26)
DX: K56.51 Intestinal adhesions [bands], with partial obstruction (principal); K43.0 Incisional hernia with obstruction, without gangrene; K91.2 Postsurgical malabsorption, not elsewhere classified; K40.90 Unilateral inguinal hernia, without obstruction or gangrene, not specified as recurrent; K56.699 Other intestinal obstruction unspecified as to partial versus complete obstruction; R10.30 Lower abdominal pain, unspecified; Z98.84 Bariatric surgery status; Z98.0 Intestinal bypass and anastomosis status; Z86.39 Personal history of other endocrine, nutritional and metabolic disease; I10 Essential (primary) hypertension; F41.8 Other specified anxiety disorders; I25.10 Atherosclerotic heart disease of native coronary artery without angina pectoris; F32.9 Major depressive disorder, single episode, unspecified; G47.33 Obstructive sleep apnea (adult) (pediatric); Z99.89 Dependence on other enabling machines and devices; Z95.5 Presence of coronary angioplasty implant and graft; E53.8 Deficiency of other specified B group vitamins; E55.9 Vitamin D deficiency, unspecified; Z68.26 Body mass index [BMI] 26.0-26.9, adult; F15.11 Other stimulant abuse, in remission; J30.9 Allergic rhinitis, unspecified; E78.5 Hyperlipidemia, unspecified
CPT/HCPCS: 74240; 88302; 88307; A9270-GY; C1781; C9113; J0171; J0330; J0694; J1100; J1170; J1644; J2020; J2185; J2405; J2704; J2710; J2795; J3010; J3411; J3420; J3490; J7042; J7050; J7120; Q9967

== ENCOUNTER 2019-08-28 08:19 | Inpatient (IN) | payer BC ==
[~2019-08-28 08:19] MED LIST changes: +Bupivacaine 0.5%/EPINEPHrine 1:200,000 50 ML MDV ONE; -Meropenem 500 MG SDV ONE
[2019-08-28] MEDS ORDERED: Celecoxib 200 MG Cap PO ONE (08:30)
[2019-08-28] MEDS ORDERED: Acetaminophen 500 MG Tab PO ONE (08:30)
[2019-08-28] MEDS ORDERED: Dextrose 5%-Lactated Ringers 1,000 ML IV SCH (09:00)
[2019-08-28] MEDS ORDERED: Ketamine 500 MG/5 ML MDV IV SCH (09:45)
[2019-08-28] MEDS ORDERED: Ketamine 50 MG in Sodium Chloride 0.9% 49.5 ML IV SCH (09:45)
[2019-08-28] MEDS ORDERED: ceFAZolin 2 GM in Premix Bag 1 BAG IV ONE (09:45)
[2019-08-28] MEDS ORDERED: Ropivacaine 36 ML, dexAMETHasone 8 MG, EPINEPHrine 0.4 MG, Sodium Chloride 0.9% 41.6 ML NERVRT SCH ×4 (10:00)
[2019-08-28] MEDS: Meropenem 500 MG SDV ONE ×2 (11:58→11:59)
[2019-08-28] MEDS ORDERED: fentaNYL 250 MCG/5 ML SDV ONE (12:08)
[2019-08-28] MEDS ORDERED: Lactated Ringers 1,000 ML ONE (12:24)
[2019-08-28] MEDS ORDERED: Lidocaine 1% 50 ML MDV ONE (12:32)
[2019-08-28] MEDS ORDERED: Lidocaine 1% 50 ML MDV INJECT ONE (12:33)
[2019-08-28] MEDS ORDERED: Naloxone 0.4 MG/ML SDV IVPUSH PRN (13:08)
[2019-08-28] MEDS ORDERED: HYDROmorphone/Normal Saline 15 MG/30 ML PCA IV PRN (13:08)
[2019-08-28] MEDS ORDERED: Naloxone 0.4 MG/ML SDV IV PRN (14:22)
[2019-08-28] MEDS ORDERED: Ondansetron 4 MG/2 ML SDV IVPUSH PRN (14:23)
[2019-08-28] MEDS: Dextrose 5%-Lactated Ringers 1,000 ML IV SCH ×2 (14:58→21:32)
[2019-08-28] MEDS ORDERED: Nicotine Polacrilex 2 MG Gum CHEW PRN (15:24)
[2019-08-28] MEDS ORDERED: CHLORPHENIRAMINE 4 MG PO PRN (16:30)
[2019-08-28] MEDS: ceFAZolin 2 GM in Premix Bag 1 BAG IV SCH (17:10)
[2019-08-28] MEDS: Cyclobenzaprine 10 MG Tab PO PRN (19:14)
[2019-08-28] MEDS: Carvedilol 6.25 MG Tab PO SCH (21:25)
[2019-08-28] MEDS: Mirtazapine 15 MG Tab PO SCH (21:28)
[2019-08-28] MEDS: Tamsulosin 0.4 MG Cap.ER PO SCH (21:28)
[2019-08-28] MEDS: Zolpidem 5 MG Tab PO PRN (21:29)
[2019-08-28] MEDS: hydrOXYzine HCL 100 MG/2 ML SDV IM PRN (22:15)
[2019-08-29] MEDS: Cyclobenzaprine 10 MG Tab PO PRN ×4 (01:05→19:49)
[2019-08-29] MEDS: Dextrose 5%-Lactated Ringers 1,000 ML IV SCH ×2 (05:22→13:32)
[2019-08-29] MEDS: ceFAZolin 2 GM in Premix Bag 1 BAG IV SCH ×2 (05:23→10:34)
[2019-08-29] MEDS ORDERED: Ondansetron 4 MG Tab.DIS PO PRN (07:16)
[2019-08-29] MEDS: Aspirin 81 MG Tab.EC PO SCH (08:15)
[2019-08-29] MEDS: Mometasone Furoate Nasal Spray 17 GM Canister NASBOTH SCH (08:16)
[2019-08-29] MEDS: Lisinopril 20 MG Tab PO SCH (08:17)
[2019-08-29] MEDS: Carvedilol 6.25 MG Tab PO SCH ×2 (08:18→20:00)
[2019-08-29] MEDS: Cetirizine 10 MG Tab PO SCH (08:19)
[2019-08-29] MEDS: buPROPion 150 MG Tab.SR PO SCH (08:19)
[2019-08-29] MEDS: Finasteride 5 MG Tab PO SCH (08:20)
[2019-08-29] MEDS: Docusate Sodium 100 MG Cap PO SCH ×2 (08:22→20:00)
[2019-08-29] MEDS: Bisacodyl 5 MG Tab PO SCH ×2 (08:22→20:00)
[2019-08-29] MEDS: oxyCODONE 5 MG Tab PO PRN ×4 (10:48→22:41)
--- NOTE | 2019-08-29 12:19 | PN ---
DATE OF SERVICE: 08/29/2019 SUBJECTIVE: Cristofer is postoperative day #1. He has been afebrile. Oral intake 2500. Urine output is 1900. Bro was removed. He voided 775 after removal of Bro. Pain is controlled with SUPERINTENDENT MAINTENANCE. Remainder of review of systems negative for any pertinent positives and negatives. OBJECTIVE: GENERAL: Cristofer [place] is a 54-year-old male. He is alert and orientated. VITAL SIGNS: TPR at 0800; 97.3, 65, 16. Blood pressure 133/73. HEENT: Negative. NECK: Supple. HEART: Regular rate and rhythm. LUNGS: Clear. ABDOMEN: Dressing is dry and intact. Abdominal binder is on. EXTREMITIES: Without peripheral edema. ASSESSMENT: 1. Exploratory laparotomy with lysis of adhesions. a. Repair of incarcerated incisional hernia with mesh. b. Repair of non-incarcerated umbilical hernia with mesh. c. Reduction of small bowel volvulus and repair of internal hernia. d. Placement of Interceed mesh x2. POSTOPERATIVE DIAGNOSES: 1. Incarcerated incisional hernia, omentum. 2. Non-incarcerated umbilical hernia. 3. Small bowel volvulus. Date of surgery: 08/28/2019. Surgeon: Tao Rehman MD. PLAN: 1. IV decreased to 100 mL per hour. 2. Discontinue SUPERINTENDENT MAINTENANCE. 3. Discontinue continuous pulse ox. 4. Oxycodone 5 mg every 4 hours p.r.n. pain. 5. Colace 100 mg b.i.d. 6. Dulcolax 10 mg b.i.d. p.o. until the patient has a bowel movement. 7. May shower. 8. Continue use of incentive spirometer. 9. We will evaluate p.r.n. or in a.m. Roxana Mcnally PA-C /[id number]
[2019-08-29] MEDS: hydrOXYzine HCl 25 MG Tab PO PRN (14:00)
[2019-08-29] MEDS: hydrOXYzine HCL 100 MG/2 ML SDV IM PRN (19:50)
[2019-08-29] MEDS: Tamsulosin 0.4 MG Cap.ER PO SCH (20:01)
[2019-08-29] MEDS: Mirtazapine 15 MG Tab PO SCH (20:01)
[2019-08-29] MEDS: Zolpidem 5 MG Tab PO PRN (22:41)
[2019-08-30] MEDS: oxyCODONE 5 MG Tab PO PRN ×4 (03:57→19:50)
[2019-08-30] MEDS: hydrOXYzine HCl 25 MG Tab PO PRN ×2 (07:15→18:08)
[2019-08-30] MEDS: Cyclobenzaprine 10 MG Tab PO PRN ×2 (07:15→18:08)
--- NOTE | 2019-08-30 08:32 | PN ---
DATE OF SERVICE: 08/30/2019 SUBJECTIVE: Cristofer had some difficulty getting his pain under control. He is passing a lot of flatus. Up, ambulating. Vital signs stable. REVIEW OF SYSTEMS: Remainder of review of systems negative for any pertinent positives and negatives. OBJECTIVE: GENERAL: Cristofer [place] is a 54-year-old male, in no acute distress. VITAL SIGNS: Stable. HEENT: Negative. NECK: Supple. HEART: Regular rate and rhythm. LUNGS: Clear. ABDOMEN: Dressings dry and intact. EXTREMITIES: Without peripheral edema. ASSESSMENT: Postoperative day 2. PLAN: 1. Discontinue IM Vistaril. 2. Colace 100 mg p.o. b.i.d. scheduled. 3. Dulcolax 10 mg p.o. tabs b.i.d. until the patient has bowel movement. 4. We will evaluate p.r.n. or in a.m. Roxana Mcnally PA-C /[id number]
[2019-08-30] MEDS: Docusate Sodium 100 MG Cap PO SCH ×2 (08:48→21:09)
[2019-08-30] MEDS: Carvedilol 6.25 MG Tab PO SCH ×2 (08:48→21:12)
[2019-08-30] MEDS: Bisacodyl 5 MG Tab PO SCH ×2 (08:49→21:08)
[2019-08-30] MEDS: Mometasone Furoate Nasal Spray 17 GM Canister NASBOTH SCH (08:49)
[2019-08-30] MEDS: Lisinopril 20 MG Tab PO SCH (08:50)
[2019-08-30] MEDS: buPROPion 150 MG Tab.SR PO SCH (08:51)
[2019-08-30] MEDS: Cetirizine 10 MG Tab PO SCH (08:51)
[2019-08-30] MEDS: Finasteride 5 MG Tab PO SCH (08:51)
[2019-08-30] MEDS: Aspirin 81 MG Tab.EC PO SCH (08:53)
[2019-08-30] MEDS ORDERED: Bisacodyl 5 MG Tab PO SCH (09:00)
[2019-08-30] MEDS ORDERED: Docusate Sodium 100 MG Cap PO SCH (09:00)
[2019-08-30] MEDS: Dextrose 5%-Lactated Ringers 1,000 ML IV SCH ×2 (09:58→19:51)
--- NOTE | 2019-08-30 16:55 | OR ---
DATE OF PROCEDURE: 08/28/2019 SURGEON: Tao Rehman MD PREOPERATIVE DIAGNOSIS: Incisional hernia. POSTOPERATIVE DIAGNOSES: 1. Incarcerated incisional hernia. 2. Non-incarcerated umbilical hernia. 3. Small bowel volvulus. OPERATIVE PROCEDURES: Exploratory laparotomy with lysis of adhesions and, 1. Repair of incarcerated incisional hernia with mesh (18712, 12760). 2. Repair of non-incarcerated umbilical hernia with mesh (07785). 3. Reduction of small bowel volvulus and closure of internal hernia (60505). 4. Placement of Interceed mesh x2 to limit recurrent adhesion formation between pelvic and abdominal wall and underlying viscera (95162). ANESTHESIA: General. JAPANESE PROFESSOR: Roxana Mcnally PA-C INDICATION FOR PROCEDURE: This 54-year-old is status post Sharla-en-Y gastric bypass, presenting with an incisional hernia in the previous upper midline incision. Plan is to proceed with exploratory laparotomy with repair of the hernia with mesh. The patient has enough of a wide fascial defect that it is felt that an open approach would be more appropriate so as to get a more satisfactory fascial closure and intended abdominal wall stability. Potential risks of the procedure including bleeding, infection, injury to the underlying viscera, problems with mesh becoming infected or the hernia recurring, as well as the remote possibility of cardiopulmonary, septic, or hemorrhagic complications leading to were discussed, and the patient wishes to proceed. DETAILS OF PROCEDURE: The patient was taken to the operating room. After general endotracheal anesthesia was induced, a Bro catheter was inserted, and the abdomen was prepped and draped. The previous midline incision which extended from the umbilicus, roughly a handsbreadth toward the xiphoid, was then reused and carried down through the skin and subcutaneous tissue. Hernia sac was then encountered, and this was dissected down to the fascial edges circumferentially. The sac was then entered. It was noted to have some incarcerated omentum within it. This was released by electrocautery dissection, and the sac then excised flush with the fascial edges. The patient was also noted to have a small umbilical hernia below the incisional hernia, which was at this point not incarcerated. Portions of small bowel appeared to have slightly briceño appearance, and the patient was noted to have some recurrent volvulus involving the small bowel. This was de-torsed with the bowel having rotated from a chzy-eb-kfcys direction underneath the mesentery of the Sharla limb. Once this was de-torsed, the mesenteric defect was closed with running 2-0 silk stitch. At this point, no further problems were noted intra-abdominally. Ventrio ST mesh measuring 15 x 17 cm was selected. At 5 cm intervals around the circumference, 5-0 Prolene stitches were placed on the polypropylene side of the mesh and the previously located stab wounds were then placed, where the sutures would be pulled up thus fixing the mesh well away from the fascial edges. The mesh was soaked in antibiotic-containing saline solution. Then, the upper half of the stitches were pulled through. Following this, Interceed mesh was placed down toward the pelvis and underneath the abdominal wall to limit recurrent adhesion formation, and the remainder of the sutures were then pulled up. These were then tied. The mesh was confirmed to be well away from the fascial edges in all directions. Using Titanium tacking screws, the mesh was then further affixed circumferentially with the screws being placed underneath the shelf of the mesh, thus protecting it from the intraperitoneal exposure. The midline fascia was then approximated with #2 Vicryl stitch, and the subcutaneous tissue with 2 layers of 3-0 Vicryl stitch, and the skin with anitra. Prior to closure, the patient underwent bilateral transversus abdominis plane blocks and also had the incision anesthestized with 1% lidocaine mixed with Marcaine. Anitra were used for the skin. Physician preschool assistant, Roxana Mcnally, played an essential role in assisting in this case; helping to position the patient, retract structures as needed, as well as suturing and cutting sutures when indicated. Her presence improved patient safety and decreased the operative time. Tao Rehman MD /[id number]
[2019-08-30] MEDS: Mirtazapine 15 MG Tab PO SCH (21:09)
[2019-08-30] MEDS: Zolpidem 5 MG Tab PO PRN (21:09)
[2019-08-30] MEDS: Tamsulosin 0.4 MG Cap.ER PO SCH (21:09)
[2019-08-31] MEDS: oxyCODONE 5 MG Tab PO PRN ×2 (02:50→10:01)
[2019-08-31] MEDS: Dextrose 5%-Lactated Ringers 1,000 ML IV SCH (05:46)
[2019-08-31 07:23] VITALS: BP 134/78; PULSE 57
[2019-08-31] MEDS ORDERED: Magnesium Hydroxide 400 MG/5 ML Susp 30 ML Cup PO PRN (07:23)
[2019-08-31] MEDS: hydrOXYzine HCl 25 MG Tab PO PRN (07:35)
[2019-08-31] MEDS: Cyclobenzaprine 10 MG Tab PO PRN (07:35)
[2019-08-31] MEDS: buPROPion 150 MG Tab.SR PO SCH (08:55)
[2019-08-31] MEDS: Aspirin 81 MG Tab.EC PO SCH (08:55)
[2019-08-31] MEDS: Mometasone Furoate Nasal Spray 17 GM Canister NASBOTH SCH (08:55)
[2019-08-31] MEDS: Bisacodyl 5 MG Tab PO SCH (08:55)
[2019-08-31] MEDS: Lisinopril 20 MG Tab PO SCH (08:56)
[2019-08-31] MEDS: Finasteride 5 MG Tab PO SCH ×2 (08:56→09:01)
[2019-08-31] MEDS: Carvedilol 6.25 MG Tab PO SCH (08:56)
[2019-08-31] MEDS: Docusate Sodium 100 MG Cap PO SCH (08:57)
[2019-08-31] MEDS: Cetirizine 10 MG Tab PO SCH (08:57)
--- NOTE | 2019-08-31 09:33 | DISCH ---
ADMISSION DIAGNOSES: 1. Incarcerated incisional hernia. 2. Status post Sharla-en-Y gastric bypass surgery. 3. Unspecified surgical malabsorption. 4. B12 deficiency. 5. Vitamin D deficiency. 6. Anxiety. 7. Coronary artery disease. 8. Degenerative joint disease. 9. Depression. 10.Diabetes mellitus, type 2. 11.Dyslipidemia. 12.Essential hypertension. 13.Methamphetamine abuse, in remission. 14.Obstructive sleep apnea. 15.Social anxiety disorder. DISCHARGE DIAGNOSES: Exploratory laparotomy with lysis of adhesions, and: 1. Repair of incarcerated incisional hernia with mesh. 2. Repair of non-incarcerated umbilical hernia with mesh. 3. Reduction of small bowel volvulus and closure of internal hernia. 4. Placement of Interceed mesh x2 to limit recurrent adhesion formation between pelvic and abdominal wall and underlying viscera. POSTOPERATIVE DIAGNOSES: 1. Incarcerated incisional hernia. 2. Non-incarcerated umbilical hernia. 3. Small bowel volvulus. HISTORY: Cristofer Thompson is a 54-year-old male who had a Sharla-en-Y gastric bypass surgery, presenting with incisional hernia in the previous upper midline incision. After preoperative evaluation and discussion of possible risks and possible complications, he wished to proceed with surgical procedure. HOSPITAL COURSE: Cristofer had his surgery on 08/28/2019. He had no operative complications. On postoperative day #1, IV was decreased to 100 mL per hour. He was changed to oral pain medication and was given bowel stimulation. On postoperative day #2, he continued to ambulate. Pain was controlled. He had not started passing any flatus. On postoperative day #3, he was able to be discharged to home. He was passing flatus but had not yet had a bowel movement. Vital signs were stable. Afebrile. Oral intake and output adequate. REVIEW OF SYSTEMS: Remainder of review of systems negative for any pertinent positives and negatives. OBJECTIVE: GENERAL: Cristofer Thompson is a pleasant 54-year-old male. VITAL SIGNS: Height is 6 feet, weight 170 pounds. TPR at 0700, 97.8; 57; 14; blood pressure 134/78. HEENT: Negative. NECK: Supple. HEART: Regular rate and rhythm. LUNGS: Clear. ABDOMEN: Aquacel dressing is on. Abdominal binder instructed to wear for 6 weeks with a pressure dressing over incision site. EXTREMITIES: Without peripheral edema. DISPOSITION: Discharged to home. CONDITION: Stable and improving. FOLLOWUP: Appointment with Roxana Mcnally PA-C, at [facility] on 09/05/2019 at 12:15 p.m. HOME MEDICATIONS: 1. Colace 100 mg b.i.d. #60. 2. Dulcolax 10 mg oral twice daily #30. Stop when he starts having bowel movements. 3. Oxycodone 5 mg every 6 hours p.r.n. pain, #28. 4. Zofran ODT sublingual every 4 hours p.r.n. nausea, #30. 5. He is to resume home medications: a. Aspirin 81 mg oral daily. b. Zyrtec 10 mg oral p.r.n. allergies. c. Chlorpheniramine 8 mg oral at bedtime. d. Vitamin D3 5000 International Units every morning. e. Vitamin B12 1000 mcg under the tongue daily. f. Colace 100 mg oral twice daily. g. Proscar 5 mg every evening. h. Lisinopril 20 mg oral daily. i. Magnesium oxide 400 mg oral daily. j. Remeron 45 mg oral at bedtime. k. Nasonex 2 sprays in each nostril daily. l. Flintstones 1 each daily. m. Nicotrol 1 dose inhalation as needed. n. [place]-3 1000 mg oral every morning. o. Flomax 0.4 mg oral every evening. p. B complex 150 mg oral every morning. q. Ambien 10 mg oral at bedtime. r. Lipitor 40 mg oral at bedtime. s. Dulcolax 10 mg oral twice daily. t. Bupropion HCL 150 mg oral every morning. u. Carvedilol 6.25 mg oral twice daily. I. Hydroxyzine 25 to 75 mg oral twice daily p.r.n. anxiety. DIET: Step 4 gastric bypass diet. Drink 8 to 10 glasses of water a day. ACTIVITY: No lifting over 10 pounds for 6 weeks. Driving: Do not drive for 1 week and while on pain medication. Shower/bathing: May shower. DISCHARGE INSTRUCTIONS: Notify provider if any fever, increased pain, swelling, redness, nausea, vomiting. Keep site clean and dry. Wear abdominal binder for 6 weeks and then as tolerated. Put a rolled up Kerlix over area of hernia to prevent any fluid buildup. Use incentive spirometer 10 times every hour while awake for 1 week.
== END 2019-08-31 10:15 | disposition home or self-care (01) | DRG 223 ==
LOC: JP.SDS 08:19 → JP.MS 08:19 → EDSTATUS 08:45 → JP.MS 12:30
PROVIDERS: ADMIT Surgery; ATTEND Surgery
PROC: 0WUF0JZ Supplement Abdominal Wall with Synthetic Substitute, Open Approach (ICD-10-PCS; principal; 2019-08-28)
PROC: 0WUF0JZ Supplement Abdominal Wall with Synthetic Substitute, Open Approach (ICD-10-PCS; 2019-08-28)
PROC: 0DS80ZZ Reposition Small Intestine, Open Approach (ICD-10-PCS; 2019-08-28)
PROC: 3E0M05Z Introduction of Adhesion Barrier into Peritoneal Cavity, Open Approach (ICD-10-PCS; 2019-08-28)
DX: K43.0 Incisional hernia with obstruction, without gangrene (principal); K56.2 Volvulus; K42.9 Umbilical hernia without obstruction or gangrene; K95.89 Other complications of other bariatric procedure; K91.2 Postsurgical malabsorption, not elsewhere classified; E55.9 Vitamin D deficiency, unspecified; F41.9 Anxiety disorder, unspecified; I25.10 Atherosclerotic heart disease of native coronary artery without angina pectoris; F32.9 Major depressive disorder, single episode, unspecified; E78.5 Hyperlipidemia, unspecified; I10 Essential (primary) hypertension; G47.33 Obstructive sleep apnea (adult) (pediatric); F15.11 Other stimulant abuse, in remission; F17.200 Nicotine dependence, unspecified, uncomplicated; E50.9 Vitamin A deficiency, unspecified; E60 Dietary zinc deficiency; E61.0 Copper deficiency; Z79.82 Long term (current) use of aspirin; Z98.84 Bariatric surgery status; Z79.899 Other long term (current) drug therapy
CPT/HCPCS: 88302; 94762; A9270-GY; C1713; C1781; J0171; J0330; J0690; J1100; J1170; J2001; J2020; J2185; J2405; J2704; J2710; J2795; J3010; J3410; J3490; J7050; J7120; J7121